=== PATIENT | female | born 1970 | race African-American/Black ===

== ENCOUNTER 2017-03-10 12:22 | Emergency (ER) | payer BC ==
--- NOTE | 2017-03-10 12:35 | EDM.PDOC ---
ED HPI GENERAL MEDICAL PROBLEM - General Chief Complaint: Eye Problems Stated Complaint: EYE PAIN, BOTH Time Seen by Provider: 03/10/17 12:33 Source of Information: Reports: Patient History Limitations: Reports: No Limitations - History of Present Illness INITIAL COMMENTS - FREE TEXT/NARRATIVE: History of present illness: [47-year-old female comes in complaining of bilateral eye inflammation with pain. Patient indicates that she had gotten some mail order contacts and upon placing them in her eyes noticed redness and pain. Patient case that her associate field service engineer as well as her secondary history teacher available to her so she came here seeking help.] Review of systems: As per history of present illness and below otherwise all systems reviewed and negative. Past medical history: As per history of present illness and as reviewed below otherwise noncontributory. Surgical history: As per history of present illness and as reviewed below otherwise noncontributory. Social history: No reported history of drug or alcohol abuse. Family history: As per history of present illness and as reviewed below otherwise noncontributory. Physical exam: HEENT: Atraumatic, normocephalic, pupils reactive, bilateral conjunctival erythema without exudate, mucous membranes moist, throat clear, neck supple, nontender, trachea midline. Lungs: Clear to auscultation, breath sounds equal bilaterally, chest nontender. Heart: S1S2, regular, negative for clicks, rubs, or JVD. Abdomen: Soft, nondistended, nontender. Negative for masses or hepatosplenomegaly. Negative for costovertebral tenderness. Pelvis: Stable nontender. Genitourinary: Deferred. Rectal: Deferred. Extremities: Atraumatic, negative for cords or calf pain. Neurovascular unremarkable. Neuro: Awake, alert, oriented. Cranial nerves II through XII unremarkable. Cerebellum unremarkable. Motor and sensory unremarkable throughout. Exam nonfocal. Global assessment is benign save the subjective complaint as noted in history of present illness Diagnostics: [] Therapeutics: [] Impression: [#1 bilateral conjunctivitis] Plan: [Tobramycin eye ointment follow-up with associate field service engineer] Definitive disposition and diagnosis as appropriate pending reevaluation and review of above. - Related Data Allergies Allergy/AdvReac Type Severity Reaction Status Date / Time morphine Allergy difficulty Verified 07/27/14 21:16 in breathing Home Meds: Home Meds Dexamethasone/Tobramycin [Tobradex Ophth Oint] 3.5 gm EYEBOTH Q4H #1 tube [Rx] Past Medical History Other OB/BYN History: x 4 Social & Family History - Tobacco Use Smoking Status *Q: Never Smoker - Alcohol Use Days Per Week of Alcohol Use: 0 - Recreational Drug Use Recreational Drug Use: No ED ROS GENERAL - Review of Systems Review Of Systems: See Below (See history of present illness) ED EXAM GENERAL W FULL EYE - Physical Exam Exam: See Below (See history of present illness) Departure - Departure Time of Disposition: 12:35 Disposition: Home, Self-Care 01 Condition: Good Clinical Impression: Conjunctivitis - Discharge Information Prescriptions: Dexamethasone/Tobramycin [Tobradex Ophth Oint] 3.5 gm EYEBOTH Q4H #1 tube Referrals: PCP,None [Primary Care Provider] - Additional Instructions: The following information is given to patients seen in the emergency department who are being discharged to home. This information is to outline your options for follow-up care. We provide all patients seen in our emergency department with a follow-up referral. The need for follow-up, as well as the timing and circumstances, are variable depending upon the specifics of your emergency department visit. If you don't have a primary care physician on staff, we will provide you with a referral. We always advise you to contact your personal physician following an emergency department visit to inform them of the circumstance of the visit and for follow-up with them and/or the need for any referrals to a consulting specialist. The emergency department will also refer you to a specialist when appropriate. This referral assures that you have the opportunity for follow-up care with a specialist. All of these measure are taken in an effort to provide you with optimal care, which includes your follow-up. Under all circumstances we always encourage you to contact your private physician who remains a resource for coordinating your care. When calling for follow-up care, please make the office aware that this follow-up is from your recent emergency room visit. If for any reason you are refused follow-up, please contact the [facility] Emergency Department at and asked to speak to the emergency department charge nurse. Apply medication as directed Follow-up with optometry next week when available Return to ED as needed as discussed
[2017-03-10 12:48] VITALS: BP 142/83
== END 2017-03-10 13:02 | disposition home or self-care (01) ==
LOC: MW.ED 12:22
DX: H10.9 Unspecified conjunctivitis (principal); Z88.5 Allergy status to narcotic agent
CPT/HCPCS: 99282; 99283

== ENCOUNTER 2018-10-26 17:17 | Emergency (ER) | payer OTHER ==
[2018-10-26] MEDS ORDERED: Ketorolac 60 MG/2 ML SDV IM ONE (17:30)
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
[2018-10-26 18:28] VITALS: BP 132/81
== END 2018-10-26 18:26 | disposition home or self-care (01) ==
LOC: MW.ED 17:17
DX: M54.41 Lumbago with sciatica, right side (principal); Z88.5 Allergy status to narcotic agent
CPT/HCPCS: 81003; 96372; 99283; J1885; 99282

== ENCOUNTER 2019-05-08 14:50 | Emergency (ER) | payer OTHER ==
[2019-05-08] MEDS ORDERED: Sodium Chloride 0.9% 2.5 ML Syringe FLUSH PRN (15:43)
[2019-05-08] MEDS ORDERED: Sodium Chloride 0.9% 1,000 ML IV ONE (15:43)
[2019-05-08] MEDS ORDERED: Sodium Chloride 0.9% 10 ML Syringe FLUSH PRN (15:43)
[2019-05-08] MEDS ORDERED: Ketorolac 30 MG/ML SDV IVPUSH ONE (15:43)
--- NOTE | 2019-05-08 15:49 | EDM.PDOC ---
ED HPI GENERAL MEDICAL PROBLEM - General Chief Complaint: Abdominal Pain Stated Complaint: PAIN ON RT SIDE Time Seen by Provider: 05/08/19 15:49 Source of Information: Reports: Patient History Limitations: Reports: No Limitations - History of Present Illness INITIAL COMMENTS - FREE TEXT/NARRATIVE: HISTORY AND PHYSICAL: History of present illness: Patient is a 49-year-old female presents the ED with complaint of right flank and abdominal pain. Patient states that the pain began 4 days ago and was intermittent but today she states the pain has been constant. She states she has had some frequent urination but denies any dysuria or hematuria. She states that she has been nauseous but denies any vomiting or diarrhea. She denies fevers, chills, chest pain, shortness of breath. She reports history of sections but otherwise no surgical history. Review of systems: As per history of present illness and below otherwise all systems reviewed and negative. Past medical history: As per history of present illness and as reviewed below otherwise noncontributory. Surgical history: As per history of present illness and as reviewed below otherwise noncontributory. Social history: No reported history of drug or alcohol abuse. Family history: As per history of present illness and as reviewed below otherwise noncontributory. Physical exam: General: Patient sitting comfortably in no acute distress and nontoxic appearing HEENT: Atraumatic, normocephalic, pupils reactive, negative for conjunctival pallor or scleral icterus, mucous membranes moist, throat clear, neck supple, nontender, trachea midline. No meningeal signs. Lungs: Clear to auscultation, breath sounds equal bilaterally, chest nontender. Heart: S1S2, regular, negative for clicks, rubs, or overt murmur. Abdomen: Right upper and lower abdominal tenderness to palpation. Soft, nondistended. Negative for masses or hepatosplenomegaly. Negative for costovertebral tenderness. No rigidity, rebound, guarding. Pelvis: Stable nontender. Genitourinary: Deferred. Rectal: Deferred. Extremities: Atraumatic, negative for cords or calf pain. Neurovascular unremarkable. Neuro: Awake, alert, oriented. Cranial nerves II through XII unremarkable. Cerebellum unremarkable. Motor and sensory unremarkable throughout. Exam nonfocal. Notes: Diagnostics: CBC, CMP, lipase, UA, urine hcg Therapeutics: 1L NS IV 30mg Toradol IV Percocet 10-325mg PO Prescriptions: Percocet (#10) Impression: Uterine fibroids, abdominal pain Plan: Take motrin as needed for pain. You may take Percocet as needed for severe pain, do not take while driving or with alcohol as it may make you drowsy Follow up with primary care provider Return to ED as needed as discussed Definitive disposition and diagnosis as appropriate pending reevaluation and review of above. Right Abdomen Pain Score (Numeric/FACES): 8 - Related Data Allergies Allergy/AdvReac Type Severity Reaction Status Date / Time morphine Allergy difficulty Verified 05/08/19 15:34 in breathing Home Meds: Home Meds oxyCODONE HCl/Acetaminophen [Percocet 5-325 mg Tablet] 1 each PO Q6H PRN #10 tablet 05/08/19 [Rx] Past Medical History - Past Health History Medical/Surgical History: Denies Medical/Surgical History HEENT History: Reports: None Cardiovascular History: Reports: None Respiratory History: Reports: None Gastrointestinal History: Reports: None Genitourinary History: Reports: None DIRECTOR DIABETES History: Reports: Other DIRECTOR DIABETES History: x 4 Musculoskeletal History: Reports: None Neurological History: Reports: None Psychiatric History: Reports: Anxiety, PTSD Endocrine/Metabolic History: Reports: None Hematologic History: Reports: None Immunologic History: Reports: None Oncologic (Cancer) History: Reports: None Dermatologic History: Reports: None - Infectious Disease History Infectious Disease History: Reports: Chicken Pox - Past Surgical History Head Surgeries/Procedures: Reports: None Female Surgical History: Reports: Section Social & Family History - Family History Family Medical History: Noncontributory - Tobacco Use Smoking Status *Q: Never Smoker - Caffeine Use Caffeine Use: Reports: None - Recreational Drug Use Recreational Drug Use: No ED ROS GENERAL - Review of Systems Review Of Systems: Comprehensive ROS is negative, except as noted in HPI. ED EXAM, GI/ABD - Physical Exam Exam: See Below (see dictation) Course - Vital Signs Last Recorded V/S: Last Vital Signs Temp 98.9 F 05/08/19 15:29 Pulse 87 05/08/19 15:29 Resp 18 05/08/19 15:29 BP 114/87 05/08/19 15:29 Pulse Ox 100 05/08/19 15:29 - Orders/Labs/Meds Orders: Active Orders 24 hr Category Date Time Status Sodium Chloride 0.9% [Saline Flush] Med 05/08/19 15:43 Active 10 ml FLUSH ASDIRECTED PRN Sodium Chloride 0.9% [Saline Flush] Med 05/08/19 15:43 Active 2.5 ml FLUSH ASDIRECTED PRN Saline Lock Insert [OM.PC] Stat Oth 05/08/19 15:43 Ordered Medication Orders Sodium Chloride (Saline Flush) 10 ml FLUSH ASDIRECTED PRN PRN Reason: Keep Vein Open Sodium Chloride (Saline Flush) 2.5 ml FLUSH ASDIRECTED PRN PRN Reason: Keep Vein Open Labs: Laboratory Tests 05/08/19 05/08/19 05/08/19 Range/Units 15:25 15:25 16:21 WBC 8.24 (4.0-11.0) K/uL RBC 4.14 L (4.30-5.90) M/uL Hgb 10.0 L (12.0-16.0) g/dL Hct 32.3 L (36.0-46.0) % MCV 78.0 L (80.0-98.0) fL MCH 24.2 L (27.0-32.0) pg MCHC 31.0 (31.0-37.0) g/dL RDW Std Deviation 47.1 (28.0-62.0) fl RDW Coeff of Oral 17 H (11.0-15.0) % Plt Count 356 (150-400) K/uL MPV 9.70 (7.40-12.00) fL Neut % (Auto) 51.7 (48.0-80.0) % Lymph % (Auto) 36.2 (16.0-40.0) % [place] % (Auto) 9.6 (0.0-15.0) % Eos % (Auto) 2.3 (0.0-7.0) % Baso % (Auto) 0.2 (0.0-1.5) % Neut # (Auto) 4.3 (1.4-5.7) K/uL Lymph # (Auto) 3.0 H (0.6-2.4) K/uL [place] # (Auto) 0.8 (0.0-0.8) K/uL Eos # (Auto) 0.2 (0.0-0.7) K/uL Baso # (Auto) 0.0 (0.0-0.1) K/uL Nucleated RBC % 0.0 /100WBC Nucleated RBCs # 0 K/uL Sodium (136-145) mmol/L Potassium (3.5-5.1) mmol/L Chloride (98-107) mmol/L Carbon Dioxide (21.0-32.0) mmol/L BUN (7.0-18.0) mg/dL Creatinine (0.6-1.0) mg/dL Est Cr Clr Drug Dosing mL/min Estimated GFR (MDRD) ml/min Glucose (74-106) mg/dL Calcium (8.5-10.1) mg/dL Total Bilirubin (0.2-1.0) mg/dL AST (15-37) IU/L ALT (14-63) IU/L Alkaline Phosphatase (46-116) U/L Troponin I (0.000-0.056) ng/mL Total Protein (6.4-8.2) g/dL Albumin (3.4-5.0) g/dL Globulin (2.6-4.0) g/dL Albumin/Globulin Ratio (0.9-1.6) Lipase (73-393) U/L Urine Color YELLOW Urine Appearance CLEAR Urine pH 8.0 (5.0-8.0) Ur Specific [place] 1.020 (1.001-1.035) Urine Protein NEGATIVE (NEGATIVE) mg/dL Urine Glucose (UA) NEGATIVE (NEGATIVE) mg/dL Urine Ketones NEGATIVE (NEGATIVE) mg/dL Urine Occult Blood NEGATIVE (NEGATIVE) Urine Nitrite NEGATIVE (NEGATIVE) Urine Bilirubin NEGATIVE (NEGATIVE) Urine Urobilinogen 0.2 (<2.0) EU/dL Ur Leukocyte Esterase NEGATIVE (NEGATIVE) Urine HCG, Qual NEGATIVE (NEGATIVE) 05/08/19 05/08/19 Range/Units 16:21 16:21 WBC (4.0-11.0) K/uL RBC (4.30-5.90) M/uL Hgb (12.0-16.0) g/dL Hct (36.0-46.0) % MCV (80.0-98.0) fL MCH (27.0-32.0) pg MCHC (31.0-37.0) g/dL RDW Std Deviation (28.0-62.0) fl RDW Coeff of Oral (11.0-15.0) % Plt Count (150-400) K/uL MPV (7.40-12.00) fL Neut % (Auto) (48.0-80.0) % Lymph % (Auto) (16.0-40.0) % [place] % (Auto) (0.0-15.0) % Eos % (Auto) (0.0-7.0) % Baso % (Auto) (0.0-1.5) % Neut # (Auto) (1.4-5.7) K/uL Lymph # (Auto) (0.6-2.4) K/uL [place] # (Auto) (0.0-0.8) K/uL Eos # (Auto) (0.0-0.7) K/uL Baso # (Auto) (0.0-0.1) K/uL Nucleated RBC % /100WBC Nucleated RBCs # K/uL Sodium 142 (136-145) mmol/L Potassium 4.4 (3.5-5.1) mmol/L Chloride 106 (98-107) mmol/L Carbon Dioxide 26.2 (21.0-32.0) mmol/L BUN 9 (7.0-18.0) mg/dL Creatinine 0.8 (0.6-1.0) mg/dL Est Cr Clr Drug Dosing 68.02 mL/min Estimated GFR (MDRD) > 60.0 ml/min Glucose 93 (74-106) mg/dL Calcium 9.1 (8.5-10.1) mg/dL Total Bilirubin 0.5 (0.2-1.0) mg/dL AST 23 (15-37) IU/L ALT 29 (14-63) IU/L Alkaline Phosphatase 71 (46-116) U/L Troponin I < 0.050 (0.000-0.056) ng/mL Total Protein 7.4 (6.4-8.2) g/dL Albumin 3.4 (3.4-5.0) g/dL Globulin 4.0 (2.6-4.0) g/dL Albumin/Globulin Ratio 0.9 (0.9-1.6) Lipase 77 (73-393) U/L Urine Color Urine Appearance Urine pH (5.0-8.0) Ur Specific [place] (1.001-1.035) Urine Protein (NEGATIVE) mg/dL Urine Glucose (UA) (NEGATIVE) mg/dL Urine Ketones (NEGATIVE) mg/dL Urine Occult Blood (NEGATIVE) Urine Nitrite (NEGATIVE) Urine Bilirubin (NEGATIVE) Urine Urobilinogen (<2.0) EU/dL Ur Leukocyte Esterase (NEGATIVE) Urine HCG, Qual (NEGATIVE) Meds: Medications Generic Name Dose Route Start Last Admin Trade Name Freq PRN Reason Stop Dose Admin Sodium Chloride 10 ml 05/08/19 15:43 Saline Flush FLUSH ASDIRECTED PRN Keep Vein Open Sodium Chloride 2.5 ml 05/08/19 15:43 Saline Flush FLUSH ASDIRECTED PRN Keep Vein Open Discontinued Medications Generic Name Dose Route Start Last Admin Trade Name Freq PRN Reason Stop Dose Admin Al Hydroxide/Mg Hydroxide 15 0 ml 05/08/19 17:13 05/08/19 17:23 ml/ Lidocaine HCl 5 ml PO 05/08/19 17:14 1 each ONETIME ONE Administration Dicyclomine HCl 10 mg 05/08/19 17:43 05/08/19 17:46 Bentyl PO 05/08/19 17:44 10 mg ONETIME ONE Administration Sodium Chloride 1,000 mls @ 999 mls/hr 05/08/19 15:43 05/08/19 16:24 Normal Saline IV 05/08/19 16:43 999 mls/hr STAT ONE Administration Iopamidol 100 ml 05/08/19 18:55 05/08/19 18:56 Isovue Multipack-370 (76%) IVPUSH 05/08/19 18:56 100 ml ONETIME STA Administration Ketorolac Tromethamine 30 mg 05/08/19 15:43 05/08/19 16:22 Toradol IVPUSH 05/08/19 15:44 30 mg ONETIME ONE Administration Oxycodone/Acetaminophen 1 tab 05/08/19 18:26 05/08/19 18:31 Percocet 325-10 Mg PO 05/08/19 18:27 1 tab ONETIME ONE Administration Departure - Departure Time of Disposition: 19:26 Disposition: Home, Self-Care 01 Condition: Good Clinical Impression: Uterine fibroid, Abdominal pain - Discharge Information Referrals: PCP,None [Primary Care Provider] - Forms: ED Department Discharge Additional Instructions: The following information is given to patients seen in the emergency department who are being discharged to home. This information is to outline your options for follow-up care. We provide all patients seen in our emergency department with a follow-up referral. The need for follow-up, as well as the timing and circumstances, are variable depending upon the specifics of your emergency department visit. If you don't have a primary care physician on staff, we will provide you with a referral. We always advise you to contact your personal physician following an emergency department visit to inform them of the circumstance of the visit and for follow-up with them and/or the need for any referrals to a consulting specialist. The emergency department will also refer you to a specialist when appropriate. This referral assures that you have the opportunity for follow-up care with a specialist. All of these measure are taken in an effort to provide you with optimal care, which includes your follow-up. Under all circumstances we always encourage you to contact your private physician who remains a resource for coordinating your care. When calling for follow-up care, please make the office aware that this follow-up is from your recent emergency room visit. If for any reason you are refused follow-up, please contact the [facility] Emergency Department at and asked to speak to the emergency department charge nurse. [facility] [address] [place] [address] [place] [address] Take motrin as needed for pain. You may take Percocet as needed for severe pain, do not take while driving or with alcohol as it may make you drowsy Follow up with primary care provider Return to ED as needed as discussed Sepsis Event Note - Evaluation Sepsis Screening Result: No Definite Risk - Focused Exam Vital Signs: Vital Signs Temp Pulse Resp BP Pulse Ox 05/08/19 15:29 98.9 F 87 18 114/87 100 Date Exam was Performed: 05/08/19 Time Exam was Performed: 19:26 - My Orders Last 24 Hours: My Active Orders 05/08/19 15:43 Sodium Chloride 0.9% [Saline Flush] 10 ml FLUSH ASDIRECTED PRN Sodium Chloride 0.9% [Saline Flush] 2.5 ml FLUSH ASDIRECTED PRN Saline Lock Insert [OM.PC] Stat - Assessment/Plan Last 24 Hours: My Active Orders 05/08/19 15:43 Sodium Chloride 0.9% [Saline Flush] 10 ml FLUSH ASDIRECTED PRN Sodium Chloride 0.9% [Saline Flush] 2.5 ml FLUSH ASDIRECTED PRN Saline Lock Insert [OM.PC] Stat
--- NOTE | 2019-05-08 16:44 | CR ---
Chest: Portable view of the chest was obtained. Comparison: No prior chest imaging is available. Heart size is somewhat generous but accentuated portable technique. Upper mediastinum is normal. Lungs are clear with no acute parenchymal change. Bony structures shows no discrete abnormality. Impression: 1. Nothing acute is appreciated on portable chest x-ray. Diagnostic code #1 This report was dictated in [place] Standard Time
[2019-05-08 16:56] LABS: BLOOD UREA NITROGEN,BUN 9 mg/dL (7.0-18.0); CARBON DIOXIDE,CO2 26.2 mmol/L (21.0-32.0); CHLORIDE,CL 106 mmol/L (98-107); GLUCOSE RANDOM 93 mg/dL (74-106); LIPASE 77 U/L (73-393); POTASSIUM,K 4.4 mmol/L (3.5-5.1); SODIUM,NA 142 mmol/L (136-145)
[2019-05-08] MEDS ORDERED: Alum Hydrox/Mag Hydrox/Simeth 15 ML, Lidocaine 2% 5 ML PO ONE ×2 (17:13)
[2019-05-08] MEDS ORDERED: Dicyclomine 10 MG Cap PO ONE (17:43)
[2019-05-08] MEDS ORDERED: Acetaminophen/oxyCODONE 325-10 MG Tab PO ONE (18:26)
--- NOTE | 2019-05-08 18:46 | US ---
Limited abdominal ultrasound: Multiple real-time images of the right upper abdomen were obtained. Comparison: No prior abdominal imaging is available. Pancreas is incompletely seen. Visualized portion of the pancreas shows no discrete abnormality. Gallbladder contains no shadowing gallstones. No gallbladder wall thickening or biliary duct dilatation is seen. Complex cystic and solid abnormality is seen off the left lobe of the liver or indenting the liver measuring up to 6.0 cm. Additional mid abdominal wall mass measuring about 15 cm in size is seen. Uncertain as to origin of this finding. No additional abnormality is seen within the liver. Gallbladder shows no shadowing gallstones. No gallbladder wall thickening or biliary duct dilatation is seen. Right kidney shows no hydronephrosis or mass. Right kidney has a length of 11.1 cm. Impression: 1. Mass off the left lobe of the liver or possibly indenting the liver and arising off another abdominal structure which appears as a complex cystic abnormality. This measures up to 6.0 cm. 2. Additional solid mass within the mid abdomen measuring up to about 15 cm in size. 3. No additional abnormality is seen on right upper quadrant abdominal ultrasound. Note: 2 findings as noted above. Etiology not certain on ultrasound exam. CT abdomen and pelvis is recommended which should include both IV and oral contrast. This CT study can be performed non-emergently if desired. Diagnostic code #9 This report was dictated in [place] Standard Time
[2019-05-08] MEDS ORDERED: Iopamidol 755 MG/ML 500 ML Multipack Bottle IVPUSH STA (18:55)
--- NOTE | 2019-05-08 19:18 | CT ---
CT abdomen and pelvis Technique: Multiple axial sections were obtained from above the dome of the diaphragm inferiorly through the pubic symphysis. Intravenous contrast was utilized. No oral contrast has been given. Findings: Mass within the midabdomen appears to arise off the uterus which is felt to represent a multi-fibroid uterus. Overall the collection of fibroids measure 15.8 cm in craniocaudal dimension, 14.9 cm in AP dimension and 13.0 cm in transverse dimension. Complicated cystic area noted off the left lobe of the liver on ultrasound correlates to a presumed degenerating fibroid within the uterus. Visualized lung bases show nothing acute. Liver contains no focal abnormality. Gallbladder contains no gallstones. Adrenal glands contain no nodule. Cyst appears noted within the left lobe of the left kidney measuring 1.9 cm. Smaller cortical abnormality also noted within left kidney measuring 5 mm most likely due to additional cyst. No additional abnormality seen within the kidneys. Pancreas shows no discrete abnormality. Spleen appears within normal limits. Aorta shows no aneurysm. No retroperitoneal adenopathy or mesenteric abnormalities are seen. No discrete pelvic abnormality is seen. No free fluid or inflammatory change is seen. Appendix not visualized Bone window settings were obtained which shows degenerative change within the apophyseal joints at L4-5 with spondylolisthesis. Impression: 1. Enlarged uterus showing multiple fibroids which causes the abdominal mass noted on recent ultrasound. Measurements as noted above. 2. Complicated cystic area is noted off the left lobe of the liver which appears to arise from the uterus most likely due to degenerated fibroid. 3. Other findings believed to be incidental as noted above. Diagnostic code #3 This report was dictated in [place] Standard Time
[2019-05-08 19:41] VITALS: BP 132/82; PULSE 78
== END 2019-05-08 19:40 | disposition home or self-care (01) ==
LOC: MW.ED 14:50
DX: D25.9 Leiomyoma of uterus, unspecified (principal); Z88.5 Allergy status to narcotic agent
CPT/HCPCS: 36415; 71045; 74177; 76705; 80053; 81003; 81025; 83690; 84484; 85025; 93005; 96361; 96374; 99284; A9270; J1885; J7030; Q9967; 99283

== ENCOUNTER 2019-12-25 16:31 | Observation (INO) | payer OTHER ==
[2019-12-25] MEDS ORDERED: Sodium Chloride 0.9% 2.5 ML Syringe FLUSH PRN ×2 (16:49)
[2019-12-25] MEDS ORDERED: Aspirin 81 MG Tab.Chew PO ONE (16:49)
[2019-12-25] MEDS ORDERED: Sodium Chloride 0.9% 10 ML Syringe FLUSH PRN (16:49)
--- NOTE | 2019-12-25 16:57 | EDM.PDOC ---
<Alonzo Huggins - Last Filed: 12/25/19 18:56> ED HPI GENERAL MEDICAL PROBLEM - General Chief Complaint: Chest Pain Stated Complaint: CHEST PAIN Time Seen by Provider: 12/25/19 16:41 - History of Present Illness INITIAL COMMENTS - FREE TEXT/NARRATIVE: History of present illness: [] Patient presents with chest pain that is left-sided that began this morning after she woke up she states after she got out of bed it felt like a lightening bolt going through her chest radiated up and down the left upper quadrant up into the left shoulder she had some shortness of breath a couple days ago but not today with this she denies any cough or fever she not had any leg pain or leg swelling she is not had any sweating nausea or vomiting nothing seems to make this pain better or worse. No history of hypertension no diabetes no smoking Review of systems: As per history of present illness and below otherwise all systems reviewed and negative. Past medical history: As per history of present illness and as reviewed below otherwise noncontributory. Surgical history: As per history of present illness and as reviewed below otherwise noncontributory. Social history: No reported history of drug or alcohol abuse. Family history: As per history of present illness and as reviewed below otherwise noncontributory. Physical exam: HEENT: Atraumatic, normocephalic, pupils reactive, negative for conjunctival pallor or scleral icterus, mucous membranes moist, throat clear, neck supple, nontender, trachea midline. Lungs: Clear to auscultation, breath sounds equal bilaterally, chest nontender. Heart: S1S2, regular, negative for clicks, rubs, or JVD. Abdomen: Soft, nondistended, nontender. Negative for masses or hepatosplenomegaly. Negative for costovertebral tenderness. Pelvis: Stable nontender. Genitourinary: Deferred. Rectal: Deferred. Extremities: Atraumatic, negative for cords or calf pain. Neurovascular unremarkable. Neuro: Awake, alert, oriented. Cranial nerves II through XII unremarkable. C erebellum unremarkable. Motor and sensory unremarkable throughout. Exam nonfocal. Diagnostics: [] Therapeutics: [] Impression: Chest pain Plan: Chest pain work-up reassess the patient [] Definitive disposition and diagnosis as appropriate pending reevaluation and review of above. left chest Pain Score (Numeric/FACES): 7 - Related Data Allergies Allergy/AdvReac Type Severity Reaction Status Date / Time morphine Allergy difficulty Verified 12/25/19 16:40 in breathing Past Medical History - Past Health History Medical/Surgical History: Denies Medical/Surgical History HEENT History: Reports: None Cardiovascular History: Reports: None Respiratory History: Reports: None Gastrointestinal History: Reports: None Genitourinary History: Reports: None BULB TESTER History: Reports: Other BULB TESTER History: x 4 Musculoskeletal History: Reports: None Neurological History: Reports: None Psychiatric History: Reports: Anxiety, PTSD Endocrine/Metabolic History: Reports: None Hematologic History: Reports: None Immunologic History: Reports: None Oncologic (Cancer) History: Reports: None Dermatologic History: Reports: None - Infectious Disease History Infectious Disease History: Reports: Chicken Pox - Past Surgical History Head Surgeries/Procedures: Reports: None Female Surgical History: Reports: Section Social & Family History - Family History Family Medical History: Noncontributory - Tobacco Use Tobacco Use Status *Q: Never Tobacco User Second Hand Smoke Exposure: No - Caffeine Use Caffeine Use: Reports: Coffee - Recreational Drug Use Recreational Drug Use: No ED ROS GENERAL - Review of Systems Review Of Systems: See Below ED EXAM, GENERAL - Physical Exam Exam: See Below #1 Interpretation EKG Interpretation Comments: EKG is normal sinus rhythm rate of [address]-T changes no too ischemia normal intervals normal axis read and interpreted by me Course - Vital Signs Text/Narrative:: The portable chest read interpreted by me there is a curious outline of the aorta suspicious for a dissection with her symptomatology I will CT her chest otherwise the one-view portable chest has no acute findings. Patient is profoundly anemic at 8.8 she denies any black or tarry stools no excessive bleeding a Hemoccult test was done rectal exam was normal and the Hemoccult was negative Departure - Departure Disposition: Refer to Observation Clinical Impression: Acute coronary syndrome, Nonspecific chest pain - Discharge Information Sepsis Event Note (ED) - Evaluation Sepsis Screening Result: No Definite Risk <Shon Bailey - Last Filed: 12/25/19 21:03> ED HPI GENERAL MEDICAL PROBLEM - History of Present Illness INITIAL COMMENTS - FREE TEXT/NARRATIVE: Signout received at [address] scan is unremarkable without evidence of dissection or PE. Patient's CTA of her abdomen pelvis reveals likely pedunculated fibroid tumor from her uterus. Patient reports that she is pain- free after sublingual nitro. Patient is low risk for cardiac etiology of chest pain however given her age and the fact that her pain was nitro responsive patient will be admitted for observation and further cardiac assessment. Case we discussed with her hospitalist for admission. I have discussed the plan with the patient and she is in agreement with admission for observation. Case discussed with Dr. Cotto accepts pt for transfer #1 Interpretation EKG Interpretation Comments: EKG: Normal sinus rhythm heart rate of [address]-T wave abnormalities Normal axis No evidence of ST elevation FL As interpreted by ER physician: Lynn Course - Vital Signs Last Recorded V/S: Last Vital Signs Temp 96.1 F L 12/25/19 16:35 Pulse 96 12/25/19 19:31 Resp 18 12/25/19 19:31 BP 125/85 12/25/19 19:31 Pulse Ox 99 12/25/19 19:31 - Orders/Labs/Meds Orders: Active Orders 24 hr Category Date Time Status Patient Status [ADT] Routine ADT 12/25/19 19:32 Active Ambulate [RC] ASDIRECTED Care 12/25/19 20:22 Active Antiembolic Devices [RC] PER UNIT ROUTINE Care 12/25/19 20:23 Active EKG Documentation Completion [RC] STAT Care 12/25/19 16:49 Active Oxygen Therapy [RC] PRN Care 12/25/19 20:22 Active RT Aerosol Therapy [RC] ASDIRECTED Care 12/25/19 20:24 Active VTE/DVT Education [RC] PER UNIT ROUTINE Care 12/25/19 20:22 Active Vital Signs [RC] Q4H Care 12/25/19 20:22 Active Heart Healthy Diet [DIET] Diet 12/25/19 Dinner Active Ang Chest [CT] Stat Exams 12/25/19 18:00 Taken FERRITIN [CHEM] Stat Lab 12/25/19 16:48 Received IRON/TIBC [CHEM] Stat Lab 12/25/19 16:48 Received TROPONIN I [CHEM] Routine Lab 12/26/19 00:00 Ordered TROPONIN I [CHEM] Stat Lab 12/25/19 20:33 Received Albuterol/Ipratropium [DuoNeb 3.0-0.5 MG/3 ML] Med 12/25/19 20:22 Active 3 ml NEB Q4HRRT PRN Sodium Chloride 0.9% [Saline Flush] Med 12/25/19 16:49 Active 10 ml FLUSH ASDIRECTED PRN Sodium Chloride 0.9% [Saline Flush] Med 12/25/19 16:49 Active 2.5 ml FLUSH ASDIRECTED PRN Sodium Chloride 0.9% [Saline Flush] Med 12/25/19 16:49 Active 2.5 ml FLUSH ASDIRECTED PRN Saline Lock Insert [OM.PC] Stat Oth 12/25/19 16:49 Ordered Sequential Compression Device [OM.PC] Per Unit Routine Oth 12/25/19 20:23 Ordered Resuscitation Status Routine Resus Stat 12/25/19 20:22 Ordered Medication Orders Acetaminophen (Tylenol) 650 mg PO Q6H PRN PRN Reason: Pain Albuterol/Ipratropium (Duoneb 3.0-0.5 Mg/3 Ml) 3 ml NEB Q4HRRT PRN PRN Reason: Shortness Of Breath/wheezing Aspirin (Aspirin) 81 mg PO DAILY VÍCTOR Sodium Chloride (Saline Flush) 10 ml FLUSH ASDIRECTED PRN PRN Reason: Keep Vein Open Last Admin: 12/25/19 17:04 Dose: 10 ml Documented by: MARJ Sodium Chloride (Saline Flush) 2.5 ml FLUSH ASDIRECTED PRN PRN Reason: Keep Vein Open Last Admin: 12/25/19 17:05 Dose: 2.5 ml Documented by: MARJ Sodium Chloride (Saline Flush) 2.5 ml FLUSH ASDIRECTED PRN PRN Reason: Keep Vein Open Last Admin: 12/25/19 17:05 Dose: 2.5 ml Documented by: MARJ Labs: Laboratory Tests 12/25/19 12/25/19 12/25/19 Range/Units 16:48 16:48 19:42 WBC 8.08 (4.0-11.0) K/uL RBC 4.11 L (4.30-5.90) M/uL Hgb 8.8 L (12.0-16.0) g/dL Hct 29.6 L (36.0-46.0) % MCV 72.0 L (80.0-98.0) fL MCH 21.4 L (27.0-32.0) pg MCHC 29.7 L (31.0-37.0) g/dL RDW Std Deviation 47.2 (28.0-62.0) fl RDW Coeff of Oral 18 H (11.0-15.0) % Plt Count 418 H (150-400) K/uL MPV 9.10 (7.40-12.00) fL Neut % (Auto) 49.7 (48.0-80.0) % Lymph % (Auto) 35.8 (16.0-40.0) % Price % (Auto) 10.1 (0.0-15.0) % Eos % (Auto) 4.2 (0.0-7.0) % Baso % (Auto) 0.2 (0.0-1.5) % Neut # (Auto) 4.0 (1.4-5.7) K/uL Lymph # (Auto) 2.9 H (0.6-2.4) K/uL Price # (Auto) 0.8 (0.0-0.8) K/uL Eos # (Auto) 0.3 (0.0-0.7) K/uL Baso # (Auto) 0.0 (0.0-0.1) K/uL Nucleated RBC % 0.0 /100WBC Nucleated RBCs # 0 K/uL Sodium 138 (136-145) mmol/L Potassium 3.8 (3.5-5.1) mmol/L Chloride 102 (98-107) mmol/L Carbon Dioxide 26.5 (21.0-32.0) mmol/L BUN 10 (7.0-18.0) mg/dL Creatinine 0.8 (0.6-1.0) mg/dL Est Cr Clr Drug Dosing 71.14 mL/min Estimated GFR (MDRD) > 60.0 ml/min Glucose 95 (74-106) mg/dL Calcium 8.5 (8.5-10.1) mg/dL Total Bilirubin 0.6 (0.2-1.0) mg/dL AST 24 (15-37) IU/L ALT 35 (14-63) IU/L Alkaline Phosphatase 74 (46-116) U/L Troponin I < 0.050 (0.000-0.056) ng/mL Total Protein 7.5 (6.4-8.2) g/dL Albumin 3.5 (3.4-5.0) g/dL Globulin 4.0 (2.6-4.0) g/dL Albumin/Globulin Ratio 0.9 (0.9-1.6) Lipase 67 L (73-393) U/L SARS-CoV-2 RNA (SHARI) NEGATIVE (NEGATIVE) Meds: Medications Generic Name Dose Route Start Last Admin Trade Name Althea PRN Reason Stop Dose Admin Acetaminophen 650 mg 12/25/19 20:29 Tylenol PO Q6H PRN Pain Albuterol/Ipratropium 3 ml 12/25/19 20:22 Duoneb 3.0-0.5 Mg/3 Ml NEB Q4HRRT PRN Shortness Of Breath/wheezing Aspirin 81 mg 12/26/19 09:00 Aspirin PO DAILY VÍCTOR Sodium Chloride 10 ml 12/25/19 16:49 12/25/19 17:04 Saline Flush FLUSH 10 ml ASDIRECTED PRN Administration Keep Vein Open Sodium Chloride 2.5 ml 12/25/19 16:49 12/25/19 17:05 Saline Flush FLUSH 2.5 ml ASDIRECTED PRN Administration Keep Vein Open Sodium Chloride 2.5 ml 12/25/19 16:49 12/25/19 17:05 Saline Flush FLUSH 2.5 ml ASDIRECTED PRN Administration Keep Vein Open Discontinued Medications Generic Name Dose Route Start Last Admin Trade Name Althea PRN Reason Stop Dose Admin Aspirin 324 mg 12/25/19 16:49 12/25/19 17:04 Aspirin PO 12/25/19 16:50 324 mg ONETIME ONE Administration Sodium Chloride 1,000 mls @ 999 mls/hr 12/25/19 18:57 12/25/19 19:01 Normal Saline IV 12/25/19 19:57 999 mls/hr .Bolus ONE Administration Iopamidol 100 ml 12/25/19 18:09 12/25/19 18:15 Isovue-370 (76%) IVPUSH 12/25/19 18:10 100 ml ONETIME STA Administration Nitroglycerin 0.4 mg 12/25/19 18:57 12/25/19 19:01 Nitrostat SL 12/25/19 18:58 0.4 mg ONETIME ONE Administration Departure - Departure Time of Disposition: 19:18 Condition: Good Sepsis Event Note (ED) - Focused Exam Vital Signs: Vital Signs Temp Pulse Resp BP BP Pulse Ox 12/25/19 19:31 96 18 125/85 99 12/25/19 19:01 122/83 12/25/19 18:35 91 18 127/76 98 12/25/19 17:50 85 18 137/80 100 12/25/19 16:35 96.1 F L 95 20 157/101 H 99 - My Orders Last 24 Hours: My Active Orders 12/25/19 19:32 Patient Status [ADT] Routine - Assessment/Plan Last 24 Hours: My Active Orders 12/25/19 19:32 Patient Status [ADT] Routine
--- NOTE | 2019-12-25 17:31 | CR ---
Indication: Chest pain Technique: Chest 1 view Comparison: May 08, 2019 Findings/Impression: Stable cardiomediastinal silhouette. Normal pulmonary vasculature. Clear lungs and pleural spaces. No acute osseous abnormality. Dictated by Mesha Hammonds MD @ Dec 25 2019 5:29PM Signed by Dr. Mesha Hammonds @ Dec 25 2019 5:30PM
[2019-12-25 17:40] LABS: BLOOD UREA NITROGEN,BUN 10 mg/dL (7.0-18.0); CARBON DIOXIDE,CO2 26.5 mmol/L (21.0-32.0); CHLORIDE,CL 102 mmol/L (98-107); GLUCOSE RANDOM 95 mg/dL (74-106); LIPASE 67 U/L (73-393); POTASSIUM,K 3.8 mmol/L (3.5-5.1); SODIUM,NA 138 mmol/L (136-145)
[2019-12-25] MEDS ORDERED: Iopamidol 755 Mg/ML 100 ML Bottle IVPUSH STA (18:09)
[2019-12-25] MEDS ORDERED: Sodium Chloride 0.9% 1,000 ML IV ONE (18:57)
[2019-12-25] MEDS ORDERED: Nitroglycerin 0.4 MG Tab.SL SL ONE (18:57)
[2019-12-25] MEDS ORDERED: Albuterol/Ipratropium 3.0-0.5 MG/3 ML Neb Soln NEB PRN (20:22)
[2019-12-25] MEDS ORDERED: Acetaminophen 325 MG Tab PO PRN (20:29)
--- NOTE | 2019-12-25 22:25 | PCM.HP.2 ---
H&P History of Present Illness - General Date of Service: 12/25/19 Admit Problem/Dx: Admission Diagnosis/Problem Admission Diagnosis/Problem Acute coronary syndrome - History of Present Illness Initial Comments - Free Text/Narative: Patient is a 49 y/o f with no significant known PMH except chronic headaches presents with chest pain that is left-sided that began this morning after she woke up she states after she got out of bed it felt like a "lightening bolt going through her chest" radiated up and down the left upper quadrant up into the left shoulder she had some shortness of breath a couple days ago but not today with this she denies any cough or fever she not had any leg pain or leg swelling she is not had any sweating nausea or vomiting nothing seems to make this pain better or worse. No history of hypertension no diabetes no smoking. Patient states she moved here from [facility] and ever since has been sedentary and has gained a lot of weight. She is alos under a lot of stress at work. Initial BP was elevated in ER, Patient underwent CTA chest an abdomen, PE was ruled out, CT pelvis showed fibroid. EKG was unremarkable, 1st troponin was negative. Nitro helped to ease the pain. Patient is being admitted for observation overnight to r/o ACS. 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: x 4 Musculoskeletal History: Reports: None Neurological History: Reports: None Psychiatric History: Reports: Anxiety, PTSD Endocrine/Metabolic History: Reports: None Hematologic History: Reports: None Immunologic History: Reports: None Oncologic (Cancer) History: Reports: None Dermatologic History: Reports: None - Infectious Disease History Infectious Disease History: Reports: Chicken Pox - Past Surgical History Head Surgeries/Procedures: Reports: None Female Surgical History: Reports: Section Social & Family History - Family History Family Medical History: Noncontributory - Tobacco Use Tobacco Use Status *Q: Never Tobacco User Second Hand Smoke Exposure: No - Caffeine Use Caffeine Use: Reports: Coffee - Recreational Drug Use Recreational Drug Use: No H&P Review of Systems - Review of Systems: Review Of Systems: See Below General: Denies: Fever, Chills, Malaise Pulmonary: Denies: Shortness of Breath, Wheezing Cardiovascular: Reports: Chest Pain. Denies: Palpitations, Dyspnea on Exertion, Orthopnea, Syncope, Claudication Gastrointestinal: Denies: Abdominal Pain, Anorexia, Black Stool Genitourinary: Denies: Dysuria, Frequency, Burning Musculoskeletal: Denies: Neck Pain, Shoulder Pain, Arm Pain, Back Pain Skin: Denies: Cyanosis, Jaundice, Mottled, Pallor Psychiatric: Denies: Confusion, Depression, Mood Lability Exam - Exam Exam: See Below - Vital Signs Vital Signs: Last Vital Signs Temp 36.7 C 12/25/19 22:03 Pulse 94 12/25/19 22:03 Resp 18 12/25/19 22:03 BP 164/86 H 12/25/19 22:03 Pulse Ox 98 12/25/19 22:03 Weight: 88.451 kg - Exam Quality Assessment: No: Supplemental Oxygen General: Alert, Oriented HEENT: Conjunctiva Clear Neck: Supple, Trachea Midline Cardiovascular: Regular Rate, Regular Rhythm, Normal S1, Normal S2 GI/Abdominal Exam: Soft, Non-Tender, No Organomegaly - Patient Data Lab Results Last 24 hrs: Laboratory Results - last 24 hr 12/25/19 12/25/19 12/25/19 Range/Units 16:48 16:48 16:48 WBC 8.08 (4.0-11.0) K/uL RBC 4.11 L (4.30-5.90) M/uL Hgb 8.8 L (12.0-16.0) g/dL Hct 29.6 L (36.0-46.0) % MCV 72.0 L (80.0-98.0) fL MCH 21.4 L (27.0-32.0) pg MCHC 29.7 L (31.0-37.0) g/dL RDW Std Deviation 47.2 (28.0-62.0) fl RDW Coeff of Oral 18 H (11.0-15.0) % Plt Count 418 H (150-400) K/uL MPV 9.10 (7.40-12.00) fL Neut % (Auto) 49.7 (48.0-80.0) % Lymph % (Auto) 35.8 (16.0-40.0) % [place] % (Auto) 10.1 (0.0-15.0) % Eos % (Auto) 4.2 (0.0-7.0) % Baso % (Auto) 0.2 (0.0-1.5) % Neut # (Auto) 4.0 (1.4-5.7) K/uL Lymph # (Auto) 2.9 H (0.6-2.4) K/uL [place] # (Auto) 0.8 (0.0-0.8) K/uL Eos # (Auto) 0.3 (0.0-0.7) K/uL Baso # (Auto) 0.0 (0.0-0.1) K/uL Nucleated RBC % 0.0 /100WBC Nucleated RBCs # 0 K/uL Sodium 138 (136-145) mmol/L Potassium 3.8 (3.5-5.1) mmol/L Chloride 102 (98-107) mmol/L Carbon Dioxide 26.5 (21.0-32.0) mmol/L BUN 10 (7.0-18.0) mg/dL Creatinine 0.8 (0.6-1.0) mg/dL Est Cr Clr Drug Dosing 71.14 mL/min Estimated GFR (MDRD) > 60.0 ml/min Glucose 95 (74-106) mg/dL Calcium 8.5 (8.5-10.1) mg/dL Iron 26 L (50-175) ug/dL TIBC 446 (250-450) ug/dL % Saturation 5.83 L (20-55) % Ferritin 10 (8-252) ng/mL Total Bilirubin 0.6 (0.2-1.0) mg/dL AST 24 (15-37) IU/L ALT 35 (14-63) IU/L Alkaline Phosphatase 74 (46-116) U/L Troponin I < 0.050 (0.000-0.056) ng/mL Total Protein 7.5 (6.4-8.2) g/dL Albumin 3.5 (3.4-5.0) g/dL Globulin 4.0 (2.6-4.0) g/dL Albumin/Globulin Ratio 0.9 (0.9-1.6) Lipase 67 L (73-393) U/L SARS-CoV-2 RNA (SHARI) (NEGATIVE) 12/25/19 12/25/19 Range/Units 19:42 20:33 WBC (4.0-11.0) K/uL RBC (4.30-5.90) M/uL Hgb (12.0-16.0) g/dL Hct (36.0-46.0) % MCV (80.0-98.0) fL MCH (27.0-32.0) pg MCHC (31.0-37.0) g/dL RDW Std Deviation (28.0-62.0) fl RDW Coeff of Oral (11.0-15.0) % Plt Count (150-400) K/uL MPV (7.40-12.00) fL Neut % (Auto) (48.0-80.0) % Lymph % (Auto) (16.0-40.0) % [place] % (Auto) (0.0-15.0) % Eos % (Auto) (0.0-7.0) % Baso % (Auto) (0.0-1.5) % Neut # (Auto) (1.4-5.7) K/uL Lymph # (Auto) (0.6-2.4) K/uL [place] # (Auto) (0.0-0.8) K/uL Eos # (Auto) (0.0-0.7) K/uL Baso # (Auto) (0.0-0.1) K/uL Nucleated RBC % /100WBC Nucleated RBCs # K/uL Sodium (136-145) mmol/L Potassium (3.5-5.1) mmol/L Chloride (98-107) mmol/L Carbon Dioxide (21.0-32.0) mmol/L BUN (7.0-18.0) mg/dL Creatinine (0.6-1.0) mg/dL Est Cr Clr Drug Dosing mL/min Estimated GFR (MDRD) ml/min Glucose (74-106) mg/dL Calcium (8.5-10.1) mg/dL Iron (50-175) ug/dL TIBC (250-450) ug/dL % Saturation (20-55) % Ferritin (8-252) ng/mL Total Bilirubin (0.2-1.0) mg/dL AST (15-37) IU/L ALT (14-63) IU/L Alkaline Phosphatase (46-116) U/L Troponin I < 0.050 (0.000-0.056) ng/mL Total Protein (6.4-8.2) g/dL Albumin (3.4-5.0) g/dL Globulin (2.6-4.0) g/dL Albumin/Globulin Ratio (0.9-1.6) Lipase (73-393) U/L SARS-CoV-2 RNA (SHARI) NEGATIVE (NEGATIVE) Result Diagrams: 12/25/19 16:48 12/25/19 16:48 Sepsis Event Note - Evaluation Sepsis Screening Result: No Definite Risk - Focused Exam Vital Signs: Vital Signs Temp Pulse Resp BP BP BP Pulse Ox 12/25/19 22:03 36.7 C 94 18 164/86 H 98 12/25/19 19:31 96 18 125/85 99 12/25/19 19:01 122/83 12/25/19 18:35 91 18 127/76 98 12/25/19 17:50 85 18 137/80 100 12/25/19 16:35 35.6 C L 95 20 157/101 H 99 - Problem List (1) Fibroid SNOMED Code(s): 215674539317237, 537239731350984 ICD Code: D21.9 - BENIGN NEOPLASM OF CONNECTIVE AND OTHER SOFT TISSUE, UNSP Status: Acute Current Visit: Yes (2) Anemia SNOMED Code(s): 716880882 ICD Code: D64.9 - ANEMIA, UNSPECIFIED Status: Acute Current Visit: Yes Problem List Initiated/Reviewed/Updated: Yes Orders Last 24hrs: Active Orders 24 hr Category Date Time Status Patient Status [ADT] Routine ADT 12/25/19 19:32 Active Ambulate [RC] ASDIRECTED Care 12/25/19 20:22 Active Antiembolic Devices [RC] PER UNIT ROUTINE Care 12/25/19 20:23 Active EKG Documentation Completion [RC] STAT Care 12/25/19 16:49 Active Oxygen Therapy [RC] PRN Care 12/25/19 20:22 Active RT Aerosol Therapy [RC] ASDIRECTED Care 12/25/19 20:24 Active Telemetry Monitoring [Cardiac Monitoring] [RC] Q8H Care 12/25/19 19:52 Active VTE/DVT Education [RC] PER UNIT ROUTINE Care 12/25/19 20:22 Active Vital Signs [RC] Q4H Care 12/25/19 20:22 Active Heart Healthy Diet [DIET] Diet 12/25/19 Dinner Active Ang Chest [CT] Stat Exams 12/25/19 18:00 Taken CBC WITH AUTO DIFF [HEME] AM Lab 12/26/19 05:11 Ordered GLYCOSYLATED HEMOGLOBIN,HGBA1C [CHEM] AM Lab 12/27/19 05:11 Ordered LIPID PANEL [CHEM] AM Lab 12/26/19 05:11 Ordered TROPONIN I [CHEM] Routine Lab 12/26/19 00:00 Ordered TSH [CHEM] AM Lab 12/26/19 05:11 Ordered UA W/ADILSON RFLX IF INDICATED [URIN] Stat Lab 12/25/19 20:28 Ordered Acetaminophen [TylenoL] Med 12/25/19 20:29 Active 650 mg PO Q6H PRN Albuterol/Ipratropium [DuoNeb 3.0-0.5 MG/3 ML] Med 12/25/19 20:22 Active 3 ml NEB Q4HRRT PRN Aspirin Med 12/26/19 09:00 Active 81 mg PO DAILY Ferrous Sulfate Med 12/26/19 09:00 Ordered 300 mg PO DAILY Ketorolac [Toradol] Med 12/25/19 22:23 Ordered 10 mg PO Q6H PRN Sodium Chloride 0.9% [Saline Flush] Med 12/25/19 16:49 Active 10 ml FLUSH ASDIRECTED PRN Sodium Chloride 0.9% [Saline Flush] Med 12/25/19 16:49 Active 2.5 ml FLUSH ASDIRECTED PRN Sodium Chloride 0.9% [Saline Flush] Med 12/25/19 16:49 Active 2.5 ml FLUSH ASDIRECTED PRN amLODIPine [Norvasc] Med 12/25/19 22:30 Ordered 5 mg PO DAILY Saline Lock Insert [OM.PC] Stat Oth 12/25/19 16:49 Ordered Sequential Compression Device [OM.PC] Per Unit Routine Oth 12/25/19 20:23 Ordered Resuscitation Status Routine Resus Stat 12/25/19 20:22 Ordered Medication Orders Acetaminophen (Tylenol) 650 mg PO Q6H PRN PRN Reason: Pain Last Admin: 12/25/19 22:21 Dose: 650 mg Documented by: KOKO Albuterol/Ipratropium (Duoneb 3.0-0.5 Mg/3 Ml) 3 ml NEB Q4HRRT PRN PRN Reason: Shortness Of Breath/wheezing Amlodipine Besylate (Norvasc) 5 mg PO DAILY VÍCTOR Aspirin (Aspirin) 81 mg PO DAILY VÍCTOR Ketorolac Tromethamine (Toradol) 10 mg PO Q6H PRN PRN Reason: Pain Stop: 12/30/19 22:24 Sodium Chloride (Saline Flush) 10 ml FLUSH ASDIRECTED PRN PRN Reason: Keep Vein Open Last Admin: 12/25/19 17:04 Dose: 10 ml Documented by: MARJ Sodium Chloride (Saline Flush) 2.5 ml FLUSH ASDIRECTED PRN PRN Reason: Keep Vein Open Last Admin: 12/25/19 17:05 Dose: 2.5 ml Documented by: MARJ Sodium Chloride (Saline Flush) 2.5 ml FLUSH ASDIRECTED PRN PRN Reason: Keep Vein Open Last Admin: 12/25/19 17:05 Dose: 2.5 ml Documented by: MARJ Assessment/Plan Comment:: 49 y/o F admitted for chest pain,,ACS rule out Trend serial cardiac enzymes cont monitor on tele Start ;low dose amlodipine start baby ASA Check TSH, Lipid panel, Glycated Hb Anemia, check Iron, ferritin monitor and replete electrolytes as needed Tylenol and Toradol for pain as needed Stress test on outpatient basis.
[2019-12-25] MEDS: amLODIPine 5 MG Tab PO SCH (23:00)
[2019-12-25] MEDS: Ketorolac 10 MG Tab PO PRN (23:01)
[2019-12-26 04:30] VITALS: PULSE 90
[2019-12-26] MEDS: Ketorolac 10 MG Tab PO PRN (06:26)
[2019-12-26] MEDS: amLODIPine 5 MG Tab PO SCH (08:23)
[2019-12-26 08:27] VITALS: BP 153/76
[2019-12-26 08:37] LABS: HEMOGLOBIN A1C 6.6 % (4.5-6.2)
[2019-12-26] MEDS ORDERED: Aspirin 81 MG Tab.Chew PO SCH (09:00)
[2019-12-26] MEDS ORDERED: Ferrous Sulfate Liq 300 MG/5 ML Cup PO SCH ×2 (09:00→21:00)
--- NOTE | 2019-12-26 10:43 | PCM.DCSUM1 ---
Discharge Summary - Hospital Course Free Text/Narrative:: Patient is a 49 y/o f with no significant known PMH except chronic headaches presents with chest pain that is left-sided that began this morning after she woke up she states after she got out of bed it felt like a "lightening bolt going through her chest" radiated up and down the left upper quadrant up into the left shoulder she had some shortness of breath a couple days ago but not today with this she denies any cough or fever she not had any leg pain or leg swelling she is not had any sweating nausea or vomiting nothing seems to make this pain better or worse. No history of hypertension no diabetes no smoking. Patient states she moved here from [facility] and ever since has been sedentary and has gained a lot of weight. She is alos under a lot of stress at work. Initial BP was elevated in ER, Patient underwent CTA chest an abdomen, PE was ruled out, CT pelvis showed fibroid. EKG was unremarkable, 1st troponin was negative. Nitro helped to ease the pain. Patient is being admitted for observation overnight to r/o ACS. Overnight patients cardiac enzymes were trended , which were negative, her labs reveled HbA1c of 6.6, she was hypertensive. She was started on metformin, She was also anemic, iron deficiency, was stated on oral iron tablets. Patient was recommended to get a stress test done given her risk factors. - Discharge Data Discharge Date: 12/26/19 Discharge Disposition: Home, Self-Care 01 Condition: Fair - Referral to Home Health Primary Care Physician: PCP None - Discharge Diagnosis/Problem(s) (1) Fibroid SNOMED Code(s): 470932969266508, [id number] ICD Code: D21.9 - BENIGN NEOPLASM OF CONNECTIVE AND OTHER SOFT TISSUE, UNSP Status: Acute Current Visit: Yes (2) Anemia SNOMED Code(s): 229642286 ICD Code: D64.9 - ANEMIA, UNSPECIFIED Status: Acute Current Visit: Yes - Discharge Plan Prescriptions/Med Rec: Aspirin 81 mg PO DAILY #30 tab.chew Ferrous Sulfate 300 mg PO BID #60 cup metFORMIN [Glucophage XR] 500 mg PO WITHDINNER #30 tab.er atorvaSTATin [Lipitor] 20 mg PO BEDTIME #30 tablet amLODIPine [Norvasc] 5 mg PO DAILY #30 tablet Acetaminophen [Tylenol] 650 mg PO Q6H PRN #30 tablet PRN Reason: Pain Home Medications: Home Meds Acetaminophen [Tylenol] 650 mg PO Q6H PRN #30 tablet 12/26/19 [Rx] Aspirin 81 mg PO DAILY #30 tab.chew 12/26/19 [Rx] Ferrous Sulfate 300 mg PO BID #60 cup 12/26/19 [Rx] Vitamin B Complex [B Complex] DAILY 12/26/19 [History] amLODIPine [Norvasc] 5 mg PO DAILY #30 tablet 12/26/19 [Rx] atorvaSTATin [Lipitor] 20 mg PO BEDTIME #30 tablet 12/26/19 [Rx] metFORMIN [Glucophage XR] 500 mg PO WITHDINNER #30 tab.er 12/26/19 [Rx] Patient Handouts: Nonspecific Chest Pain, Adult, [id number] Referrals: Awais Reyes BELLY DANCER [Ordering Only Provider] - 01/08/20 10:00 am - Discharge Summary/Plan Comment DC Time >30 min.: No - Patient Data Vitals - Most Recent: Last Vital Signs Temp 37.0 C 12/26/19 04:26 Pulse 90 12/26/19 08:00 Resp 16 12/26/19 08:00 BP 153/76 H 12/26/19 08:23 Pulse Ox 96 12/26/19 08:00 Weight - Most Recent: 88.451 kg I&O - Last 24 hours: Intake & Output 12/25/19 12/26/19 12/26/19 22:59 06:59 14:59 Intake Total 500 350 Output Total 600 Balance 500 -250 Lab Results - Last 24 hrs: Laboratory Results - last 24 hr 12/25/19 12/25/19 12/25/19 Range/Units 16:48 16:48 16:48 WBC 8.08 (4.0-11.0) K/uL RBC 4.11 L (4.30-5.90) M/uL Hgb 8.8 L (12.0-16.0) g/dL Hct 29.6 L (36.0-46.0) % MCV 72.0 L (80.0-98.0) fL MCH 21.4 L (27.0-32.0) pg MCHC 29.7 L (31.0-37.0) g/dL RDW Std Deviation 47.2 (28.0-62.0) fl RDW Coeff of Oral 18 H (11.0-15.0) % Plt Count 418 H (150-400) K/uL MPV 9.10 (7.40-12.00) fL Neut % (Auto) 49.7 (48.0-80.0) % Lymph % (Auto) 35.8 (16.0-40.0) % [place] % (Auto) 10.1 (0.0-15.0) % Eos % (Auto) 4.2 (0.0-7.0) % Baso % (Auto) 0.2 (0.0-1.5) % Neut # (Auto) 4.0 (1.4-5.7) K/uL Lymph # (Auto) 2.9 H (0.6-2.4) K/uL [place] # (Auto) 0.8 (0.0-0.8) K/uL Eos # (Auto) 0.3 (0.0-0.7) K/uL Baso # (Auto) 0.0 (0.0-0.1) K/uL Nucleated RBC % 0.0 /100WBC Nucleated RBCs # 0 K/uL Sodium 138 (136-145) mmol/L Potassium 3.8 (3.5-5.1) mmol/L Chloride 102 (98-107) mmol/L Carbon Dioxide 26.5 (21.0-32.0) mmol/L BUN 10 (7.0-18.0) mg/dL Creatinine 0.8 (0.6-1.0) mg/dL Est Cr Clr Drug Dosing 71.14 mL/min Estimated GFR (MDRD) > 60.0 ml/min Glucose 95 (74-106) mg/dL Hemoglobin A1c (4.5-6.2) % Calcium 8.5 (8.5-10.1) mg/dL Iron 26 L (50-175) ug/dL TIBC 446 (250-450) ug/dL % Saturation 5.83 L (20-55) % Ferritin 10 (8-252) ng/mL Total Bilirubin 0.6 (0.2-1.0) mg/dL AST 24 (15-37) IU/L ALT 35 (14-63) IU/L Alkaline Phosphatase 74 (46-116) U/L Troponin I < 0.050 (0.000-0.056) ng/mL Total Protein 7.5 (6.4-8.2) g/dL Albumin 3.5 (3.4-5.0) g/dL Globulin 4.0 (2.6-4.0) g/dL Albumin/Globulin Ratio 0.9 (0.9-1.6) Triglycerides (0-200) mg/dL Cholesterol (50-200) mg/dL LDL Cholesterol, Calc (60-180) mg/dL VLDL Cholesterol (5-55) mg/dL HDL Cholesterol (40-60) mg/dL Cholesterol/HDL Ratio (3.3-6.0) Lipase 67 L (73-393) U/L TSH 3rd Generation (0.36-3.74) uIU/mL Urine Color Urine Appearance Urine pH (5.0-8.0) Ur Specific [place] (1.001-1.035) Urine Protein (NEGATIVE) mg/dL Urine Glucose (UA) (NEGATIVE) mg/dL Urine Ketones (NEGATIVE) mg/dL Urine Occult Blood (NEGATIVE) Urine Nitrite (NEGATIVE) Urine Bilirubin (NEGATIVE) Urine Urobilinogen (<2.0) EU/dL Ur Leukocyte Esterase (NEGATIVE) SARS-CoV-2 RNA (SHARI) (NEGATIVE) 12/25/19 12/25/19 12/25/19 Range/Units 17:50 19:42 20:33 WBC (4.0-11.0) K/uL RBC (4.30-5.90) M/uL Hgb (12.0-16.0) g/dL Hct (36.0-46.0) % MCV (80.0-98.0) fL MCH (27.0-32.0) pg MCHC (31.0-37.0) g/dL RDW Std Deviation (28.0-62.0) fl RDW Coeff of Oral (11.0-15.0) % Plt Count (150-400) K/uL MPV (7.40-12.00) fL Neut % (Auto) (48.0-80.0) % Lymph % (Auto) (16.0-40.0) % [place] % (Auto) (0.0-15.0) % Eos % (Auto) (0.0-7.0) % Baso % (Auto) (0.0-1.5) % Neut # (Auto) (1.4-5.7) K/uL Lymph # (Auto) (0.6-2.4) K/uL [place]verse # (Auto) (0.0-0.8) K/uL Eos # (Auto) (0.0-0.7) K/uL Baso # (Auto) (0.0-0.1) K/uL Nucleated RBC % /100WBC Nucleated RBCs # K/uL Sodium (136-145) mmol/L Potassium (3.5-5.1) mmol/L Chloride (98-107) mmol/L Carbon Dioxide (21.0-32.0) mmol/L BUN (7.0-18.0) mg/dL Creatinine (0.6-1.0) mg/dL Est Cr Clr Drug Dosing mL/min Estimated GFR (MDRD) ml/min Glucose (74-106) mg/dL Hemoglobin A1c (4.5-6.2) % Calcium (8.5-10.1) mg/dL Iron (50-175) ug/dL TIBC (250-450) ug/dL % Saturation (20-55) % Ferritin (8-252) ng/mL Total Bilirubin (0.2-1.0) mg/dL AST (15-37) IU/L ALT (14-63) IU/L Alkaline Phosphatase (46-116) U/L Troponin I < 0.050 (0.000-0.056) ng/mL Total Protein (6.4-8.2) g/dL Albumin (3.4-5.0) g/dL Globulin (2.6-4.0) g/dL Albumin/Globulin Ratio (0.9-1.6) Triglycerides (0-200) mg/dL Cholesterol (50-200) mg/dL LDL Cholesterol, Calc (60-180) mg/dL VLDL Cholesterol (5-55) mg/dL HDL Cholesterol (40-60) mg/dL Cholesterol/HDL Ratio (3.3-6.0) Lipase (73-393) U/L TSH 3rd Generation (0.36-3.74) uIU/mL Urine Color YELLOW Urine Appearance CLEAR Urine pH 6.0 (5.0-8.0) Ur Specific [place] 1.020 (1.001-1.035) Urine Protein NEGATIVE (NEGATIVE) mg/dL Urine Glucose (UA) NEGATIVE (NEGATIVE) mg/dL Urine Ketones NEGATIVE (NEGATIVE) mg/dL Urine Occult Blood NEGATIVE (NEGATIVE) Urine Nitrite NEGATIVE (NEGATIVE) Urine Bilirubin NEGATIVE (NEGATIVE) Urine Urobilinogen 0.2 (<2.0) EU/dL Ur Leukocyte Esterase NEGATIVE (NEGATIVE) SARS-CoV-2 RNA (SHARI) NEGATIVE (NEGATIVE) 12/26/19 12/26/19 12/26/19 Range/Units 00:17 05:59 05:59 WBC 8.85 (4.0-11.0) K/uL RBC 3.87 L (4.30-5.90) M/uL Hgb 8.4 L (12.0-16.0) g/dL Hct 27.8 L (36.0-46.0) % MCV 71.8 L (80.0-98.0) fL MCH 21.7 L (27.0-32.0) pg MCHC 30.2 L (31.0-37.0) g/dL RDW Std Deviation 46.9 (28.0-62.0) fl RDW Coeff of Oral 18 H (11.0-15.0) % Plt Count 409 H (150-400) K/uL MPV 9.60 (7.40-12.00) fL Neut % (Auto) 49.2 (48.0-80.0) % Lymph % (Auto) 38.6 (16.0-40.0) % [place] % (Auto) 8.6 (0.0-15.0) % Eos % (Auto) 3.3 (0.0-7.0) % Baso % (Auto) 0.3 (0.0-1.5) % Neut # (Auto) 4.4 (1.4-5.7) K/uL Lymph # (Auto) 3.4 H (0.6-2.4) K/uL [place] # (Auto) 0.8 (0.0-0.8) K/uL Eos # (Auto) 0.3 (0.0-0.7) K/uL Baso # (Auto) 0.0 (0.0-0.1) K/uL Nucleated RBC % 0.0 /100WBC Nucleated RBCs # 0 K/uL Sodium (136-145) mmol/L Potassium (3.5-5.1) mmol/L Chloride (98-107) mmol/L Carbon Dioxide (21.0-32.0) mmol/L BUN (7.0-18.0) mg/dL Creatinine (0.6-1.0) mg/dL Est Cr Clr Drug Dosing mL/min Estimated GFR (MDRD) ml/min Glucose (74-106) mg/dL Hemoglobin A1c (4.5-6.2) % Calcium (8.5-10.1) mg/dL Iron (50-175) ug/dL TIBC (250-450) ug/dL % Saturation (20-55) % Ferritin (8-252) ng/mL Total Bilirubin (0.2-1.0) mg/dL AST (15-37) IU/L ALT (14-63) IU/L Alkaline Phosphatase (46-116) U/L Troponin I < 0.050 (0.000-0.056) ng/mL Total Protein (6.4-8.2) g/dL Albumin (3.4-5.0) g/dL Globulin (2.6-4.0) g/dL Albumin/Globulin Ratio (0.9-1.6) Triglycerides 91 (0-200) mg/dL Cholesterol 178 (50-200) mg/dL LDL Cholesterol, Calc 109 (60-180) mg/dL VLDL Cholesterol 18 (5-55) mg/dL HDL Cholesterol 51 (40-60) mg/dL Cholesterol/HDL Ratio 3.5 (3.3-6.0) Lipase (73-393) U/L TSH 3rd Generation 1.78 (0.36-3.74) uIU/mL Urine Color Urine Appearance Urine pH (5.0-8.0) Ur Specific [place] (1.001-1.035) Urine Protein (NEGATIVE) mg/dL Urine Glucose (UA) (NEGATIVE) mg/dL Urine Ketones (NEGATIVE) mg/dL Urine Occult Blood (NEGATIVE) Urine Nitrite (NEGATIVE) Urine Bilirubin (NEGATIVE) Urine Urobilinogen (<2.0) EU/dL Ur Leukocyte Esterase (NEGATIVE) SARS-CoV-2 RNA (SHARI) (NEGATIVE) 12/26/19 Range/Units 05:59 WBC (4.0-11.0) K/uL RBC (4.30-5.90) M/uL Hgb (12.0-16.0) g/dL Hct (36.0-46.0) % MCV (80.0-98.0) fL MCH (27.0-32.0) pg MCHC (31.0-37.0) g/dL RDW Std Deviation (28.0-62.0) fl RDW Coeff of Oral (11.0-15.0) % Plt Count (150-400) K/uL MPV (7.40-12.00) fL Neut % (Auto) (48.0-80.0) % Lymph % (Auto) (16.0-40.0) % [place] % (Auto) (0.0-15.0) % Eos % (Auto) (0.0-7.0) % Baso % (Auto) (0.0-1.5) % Neut # (Auto) (1.4-5.7) K/uL Lymph # (Auto) (0.6-2.4) K/uL [place] # (Auto) (0.0-0.8) K/uL Eos # (Auto) (0.0-0.7) K/uL Baso # (Auto) (0.0-0.1) K/uL Nucleated RBC % /100WBC Nucleated RBCs # K/uL Sodium (136-145) mmol/L Potassium (3.5-5.1) mmol/L Chloride (98-107) mmol/L Carbon Dioxide (21.0-32.0) mmol/L BUN (7.0-18.0) mg/dL Creatinine (0.6-1.0) mg/dL Est Cr Clr Drug Dosing mL/min Estimated GFR (MDRD) ml/min Glucose (74-106) mg/dL Hemoglobin A1c 6.6 H (4.5-6.2) % Calcium (8.5-10.1) mg/dL Iron (50-175) ug/dL TIBC (250-450) ug/dL % Saturation (20-55) % Ferritin (8-252) ng/mL Total Bilirubin (0.2-1.0) mg/dL AST (15-37) IU/L ALT (14-63) IU/L Alkaline Phosphatase (46-116) U/L Troponin I (0.000-0.056) ng/mL Total Protein (6.4-8.2) g/dL Albumin (3.4-5.0) g/dL Globulin (2.6-4.0) g/dL Albumin/Globulin Ratio (0.9-1.6) Triglycerides (0-200) mg/dL Cholesterol (50-200) mg/dL LDL Cholesterol, Calc (60-180) mg/dL VLDL Cholesterol (5-55) mg/dL HDL Cholesterol (40-60) mg/dL Cholesterol/HDL Ratio (3.3-6.0) Lipase (73-393) U/L TSH 3rd Generation (0.36-3.74) uIU/mL Urine Color Urine Appearance Urine pH (5.0-8.0) Ur Specific [place] (1.001-1.035) Urine Protein (NEGATIVE) mg/dL Urine Glucose (UA) (NEGATIVE) mg/dL Urine Ketones (NEGATIVE) mg/dL Urine Occult Blood (NEGATIVE) Urine Nitrite (NEGATIVE) Urine Bilirubin (NEGATIVE) Urine Urobilinogen (<2.0) EU/dL Ur Leukocyte Esterase (NEGATIVE) SARS-CoV-2 RNA (SHARI) (NEGATIVE) Med Orders - Current: Current Medications Acetaminophen (Tylenol) 650 mg PO Q6H PRN PRN Reason: Pain Last Admin: 12/25/19 22:21 Dose: 650 mg Documented by: Albuterol/Ipratropium (Duoneb 3.0-0.5 Mg/3 Ml) 3 ml NEB Q4HRRT PRN PRN Reason: Shortness Of Breath/wheezing Amlodipine Besylate (Norvasc) 5 mg PO DAILY [facility] Last Admin: 12/26/19 08:23 Dose: 5 mg Documented by: Aspirin (Aspirin) 81 mg PO DAILY [facility] Last Admin: 12/26/19 08:23 Dose: 81 mg Documented by: Atorvastatin Calcium (Lipitor) 20 mg PO BEDTIME [facility] Ferrous Sulfate (Ferrous Sulfate) 300 mg PO BID [facility] Ketorolac Tromethamine (Toradol) 10 mg PO Q6H PRN PRN Reason: Pain Stop: 12/30/19 22:24 Last Admin: 12/26/19 06:26 Dose: 10 mg Documented by: Metformin HCl (Glucophage Xr) 500 mg PO WITHJHONATAN [facility] Sodium Chloride (Saline Flush) 10 ml FLUSH ASDIRECTED PRN PRN Reason: Keep Vein Open Last Admin: 12/25/19 17:04 Dose: 10 ml Documented by: Sodium Chloride (Saline Flush) 2.5 ml FLUSH ASDIRECTED PRN PRN Reason: Keep Vein Open Last Admin: 12/25/19 17:05 Dose: 2.5 ml Documented by: Sodium Chloride (Saline Flush) 2.5 ml FLUSH ASDIRECTED PRN PRN Reason: Keep Vein Open Last Admin: 12/25/19 17:05 Dose: 2.5 ml Documented by: Discontinued Medications Aspirin (Aspirin) 324 mg PO ONETIME ONE Stop: 12/25/19 16:50 Last Admin: 12/25/19 17:04 Dose: 324 mg Documented by: Ferrous Sulfate (Ferrous Sulfate) 300 mg PO DAILY [facility] Last Admin: 12/26/19 08:23 Dose: 300 mg Documented by: Sodium Chloride (Normal Saline) 1,000 mls @ 999 mls/hr IV .Bolus ONE Stop: 12/25/19 19:57 Last Admin: 12/25/19 19:01 Dose: 999 mls/hr Documented by: Iopamidol (Isovue-370 (76%)) 100 ml IVPUSH ONETIME STA Stop: 12/25/19 18:10 Last Admin: 12/25/19 18:15 Dose: 100 ml Documented by: Nitroglycerin (Nitrostat) 0.4 mg SL ONETIME ONE Stop: 12/25/19 18:58 Last Admin: 12/25/19 19:01 Dose: 0.4 mg Documented by:
[2019-12-26] MEDS ORDERED: metFORMIN 500 MG Tab.ER PO SCH (17:30)
[2019-12-26] MEDS ORDERED: atorvaSTATin 20 MG Tab PO SCH (21:00)
--- NOTE | 2019-12-29 15:32 | CT ---
INDICATION: Chest pain. Possible dissection. COMPARISON: CT angiogram of the chest from 07/27/2014. CT of the abdomen and pelvis with contrast from 05/08/2019 TECHNIQUE: CT angiography of the chest, abdomen, and pelvis was performed with the uneventful intravenous administration of 100 cc of Isovue 370 while 1 mm thick axial sections were obtained from above the lungs through the pubic symphysis. Please note that all CT scans at this facility use dose modulation, iterative reconstruction, and/or weight-based dosing when appropriate to reduce radiation dose to as low as reasonably achievable. FINDINGS: : The thoracic aorta is normal in caliber with no sign of dilatation or dissection. There is no sign of periaortic hematoma. There is stable mild linear density in the anterior inferior right middle lobe consistent with scarring from previous inflammatory disease. The lungs are otherwise clear with no sign of infiltrate or mass. There is excellent enhancement of the pulmonary arteries, with no sign of pulmonary embolism. There is no sign of mediastinal or hilar mass or adenopathy. There is no sign of supraclavicular or axillary mass or adenopathy. The heart is normal in appearance for the patient`s age, as are the ascending great vessels. The abdominal aorta is normal in caliber with no sign of aneurysmal dilatation or dissection. The celiac axis, SMA, solitary bilateral renal arteries, and ANITRA are widely patent. There is no sign of periaortic hematoma. In the abdomen, the liver, spleen, pancreas, and adrenals are normal in appearance. Again seen is a 2.0 centimeter diameter cyst arising from the anterior upper pole of the left kidney. A tiny subcentimeter cyst is seen nearby, slightly more inferiorly. The kidneys are otherwise normal in appearance. The gallbladder is normal in appearance. There is no sign of retroperitoneal mass or adenopathy. The stomach, loops of small bowel, and colon in the abdomen are normal in appearance. Again seen is weakening of the fascia in the periumbilical region with anterior protrusion of peritoneal contents, without too hernia formation. In the pelvis, the appendix is nonvisualized, but there is no sign of an inflammatory process in the area of the appendix. The loops of small bowel and colon in the pelvis are normal in appearance. Again seen is a giant central and right upper pelvic mass projecting superiorly to the level of the lower pole of the right kidney, appearing to arise from the superior right uterine fundus. The mass is multilobulated. There is prominent peripheral vascularity contiguous with the vessels of the otherwise normal- appearing uterine fundus, with relative hypo vascularity centrally in the lobules. The mass measures 16.4 x 12.0 centimeters in cross-section and 13.8 centimeters in length, slightly increased in size compared to the previous study where it measured 15.2 x 11.1 centimeters in cross-section and 13.6 centimeters in length. I think it is likely that this large pelvic mass is a massive pedunculated fibroid, with the continuity of the vessels in the mass with the vessels of the uterine fundus helping confirm this appearance. I cannot entirely exclude an ovarian mass however, and I would not recommend biopsy, in order to prevent the possibility of peritoneal seeding of a possible ovarian malignancy. The urinary bladder is normal in appearance. There is no sign of pelvic or inguinal mass or adenopathy. There is no sign of free fluid or free air in the abdomen or pelvis. Again seen is grade 1 anterior subluxation of L4 on L5 associated with mild L4-5 disc degenerative disease. IMPRESSION: Normal CT angiogram of the thoracic and abdominal aorta. No sign of any aortic dissection or aneurysmal dilatation to correlate with history of pain. Normal CT of the chest with contrast. CT of the abdomen shows small cysts in the left kidney of no clinical concern. CT of the pelvis shows a slight increase in size of the very large pelvic mass projecting into the central and right lower abdomen, appearing to be a large pedunculated uterine fibroid. It now measures 16.4 x 12.0 x 13.8 centimeters. Please note that all CT scans at this facility use dose modulation, iterative reconstruction, and/or weight-based dosing when appropriate to reduce radiation dose to as low as reasonably achievable. Dictated by Neo Castrejon MD @ Dec 25 2019 6:32PM Signed by: Neo Castrejon MD @12/25/2019 7:01:08 PM (Electronic Signature) [email or web address]
== END 2019-12-26 13:15 | disposition home or self-care (01) ==
LOC: MW.ED 16:31 → MW.MS 20:27
PROVIDERS: ADMIT Student in an Organized Health Care Education/Training Program; ATTEND Student in an Organized Health Care Education/Training Program
DX: D50.9 Iron deficiency anemia, unspecified (principal); I10 Essential (primary) hypertension; D21.9 Benign neoplasm of connective and other soft tissue, unspecified; Z20.828 Contact with and (suspected) exposure to other viral communicable diseases; Z88.8 Allergy status to other drugs, medicaments and biological substances
CPT/HCPCS: 36415; 71045; 71275; 74175; 80053; 80061; 81003; 82728; 83036; 83550; 83690; 84443; 84484; 85025; 87635; 93005; 96360; 96361; 99285; A9270; G0378; J7030; Q9967; 93010; 99217; 99219; 99284; U0002